=== PATIENT | male | born 1970 | race Caucasian/White ===

== ENCOUNTER 2016-08-03 10:02 | Outpatient (CLI) | payer OTHER | END 2016-08-03 23:00 | LOC: LAB SRH 10:02 | DX: E10.39 Type 1 diabetes mellitus with other diabetic ophthalmic complication (principal); E78.2 Mixed hyperlipidemia; E55.9 Vitamin D deficiency, unspecified | CPT/HCPCS: 90074; 90100; 90185; 91096; 91286; 91610; 92690 ==